=== PATIENT | female | born 1955 | race Caucasian/White ===

== ENCOUNTER 2016-10-18 06:59 | Emergency (ER) | payer MEDICARE, MEDICAID ==
[~2016-10-18] VITALS: Ht 170.1 cm; Wt 83.0 kg
[2016-10-18 07:56] LABS: BASO # 0.1 10*3/uL (0.0-0.1); BASO % 0.6 % (0.0-1.0); EOS # 0.1 10*3/uL (0.0-0.4); EOS % 0.7 % (1.0-4.0); HEMATOCRIT 46.3 % (37.0-47.0); HEMOGLOBIN 15.5 g/dl (12.0-16.0); LYMPH # 2.6 10*3/uL (1.3-4.4); LYMPH % 27.5 % (27.0-41.0); MEAN CELL VOLUME 93.9 fl (81.0-99.0); MEAN CORPUSCULAR HGB 31.4 pg (27.0-31.0); MEAN CORPUSCULAR HGB CONC 33.5 g/dl (33.0-37.0); MEAN PLATELET VOLUME 8.3 fl (9.6-12.3); MONO # 0.9 10*3/uL (0.1-1.0); MONO % 9.5 % (3.0-9.0); NEUT # 5.8 10*3/uL (2.3-7.9); NEUT % 61.5 % (47.0-73.0); PLATELET COUNT AUTOMATED 273 10*3/uL (130-400); RED BLOOD COUNT 4.93 10*6/uL (4.10-5.10); RED CELL DISTRI WIDTH 12.5 % (0-14.5); WHITE BLOOD COUNT 9.5 10*3/uL (4.8-10.8)
[2016-10-18 08:12] LABS: ALBUMIN 4.4 gm/dl (3.1-4.5); ALKALINE PHOSPHATASE 68 U/L (45-117); BILIRUBIN, TOTAL 0.7 mg/dl (0.2-1.0); BUN 11 mg/dl (7-24); CARBON DIOXIDE 28 mmol/L (21-32); CHLORIDE 107 mmol/L (98-107); EST GLOM FILT AFRICAN AMERICAN > 60 ml/min; GLUCOSE 128 mg/dL (65-99); MAGNESIUM 2.1 mg/dL (1.5-2.1); POTASSIUM 3.6 mmol/L (3.5-5.1); SGOT/AST 17 IU/L (3-35); SGPT/ALT 19 U/L (12-78); SODIUM 142 mmol/L (136-145); TOTAL PROTEIN 7.8 gm/dL (6.4-8.2); URIC ACID 4.5 mg/dL (2.6-6.0)
[2016-10-18 08:14] LABS: C-REACTIVE PROTEIN < 0.29 MG/DL (0-0.3)
[2016-10-18] MEDS ORDERED: IBUPROFEN600 MG PO (08:41)
== END 2016-10-18 09:15 | disposition home or self-care (01) ==
LOC: ED 06:59
PROVIDERS: Emergency Medicine
DX: S86.911A Strain of unspecified muscle(s) and tendon(s) at lower leg level, right leg, initial encounter (principal); X58.XXXA Exposure to other specified factors, initial encounter; Y93.89 Activity, other specified; Y92.9 Unspecified place or not applicable; Y99.9 Unspecified external cause status

== ENCOUNTER → 2017-02-18 | Outpatient (CLI) | payer MEDICARE, MEDICAID ==
[~2017-02-18] MED LIST: IBUPROFEN600 MG PO
[2017-02-18 10:14] LABS: CREATININE 1.01 mg/dL (0.55-1.02)
== END | disposition home or self-care (01) ==
LOC: LAB 09:37 → CT 10:00
PROVIDERS: Radiology Diagnostic Radiology
DX: R91.8 Other nonspecific abnormal finding of lung field (principal)

== ENCOUNTER → 2018-02-06 | Outpatient (CLI) | payer MEDICARE, MEDICAID ==
[2018-02-07 14:09] LABS: LUPUS DRVVT 36.8 sec (0.0-47.0); PROTEIN S, FREE 119 % (57-157); PROTEIN S, TOTAL 105 % (60-150); PTT-LA 32.8 sec (0.0-51.9)
[2018-02-07 15:11] LABS: ANTICARDIOLIPIN AB, IGG, QN <9 GPL U/mL (0-14); ANTICARDIOLIPIN AB, IGM, QN <9 MPL U/mL (0-12); CARDIOLIPIN AB IGA 161836 <9 APL U/mL (0-11); LUPUS REFLEX INTERPRETATION Comment: (.)
== END | disposition home or self-care (01) ==
LOC: LAB 08:53
PROVIDERS: Internal Medicine
DX: D68.59 Other primary thrombophilia (principal); Z83.2 Family history of diseases of the blood and blood-forming organs and certain disorders involving the immune mechanism

== ENCOUNTER → 2018-07-18 | Outpatient (CLI) | payer MEDICARE, MEDICAID ==
[2018-07-18 09:36] LABS: CREATININE 0.96 mg/dL (0.55-1.02)
== END | disposition home or self-care (01) ==
LOC: CT 09:00 → LAB 09:02 → CT 09:02
PROVIDERS: Radiology Diagnostic Radiology
DX: R91.1 Solitary pulmonary nodule (principal)

== ENCOUNTER 2019-07-08 08:42 | Emergency (ER) | payer MEDICARE, MEDICAID ==
[~2019-07-08] VITALS: Ht 170.1 cm; Wt 83.0 kg
[2019-07-08] MEDS ORDERED: NAPROSYN500 MG PO (12:17)
== END 2019-07-08 12:20 | disposition home or self-care (01) ==
LOC: ED 08:42
DX: S80.02XA Contusion of left knee, initial encounter (principal); S50.312A Abrasion of left elbow, initial encounter; M79.641 Pain in right hand; Z79.899 Other long term (current) drug therapy; W01.10XA Fall on same level from slipping, tripping and stumbling with subsequent striking against unspecified object, initial encounter; Y93.01 Activity, walking, marching and hiking; Y92.89 Other specified places as the place of occurrence of the external cause; Y99.8 Other external cause status

== ENCOUNTER → 2021-09-14 | Outpatient (CLI) | payer MEDICARE, MEDICAID ==
[~2021-09-14] MED LIST changes: +NAPROSYN500 MG PO
[2021-09-14 12:05] LABS: CHOLESTEROL 160 mg/dL (<200); CREATININE 0.92 mg/dL (0.55-1.02); LDL CHOLESTEROL 59 mg/dL (9-159); SGPT/ALT 13 U/L (12-78); TRIGLYCERIDES 94 mg/dl (<150)
== END | disposition home or self-care (01) ==
LOC: LAB 11:08
PROVIDERS: ATTEND Internal Medicine
DX: E78.00 Pure hypercholesterolemia, unspecified (principal); I10 Essential (primary) hypertension